=== PATIENT | male | born 1995 | race Two or more races ===

== ENCOUNTER → 2017-02-01 11:03 | Emergency (ER) | payer OTHER ==
[~2017-02-01 11:03] MED LIST: Acetaminophen TAB* 325 MG PO ONE; Ibuprofen TAB* 800 MG PO ONE
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
[2017-02-01 15:18] VITALS: BP 147/82
== END | disposition home or self-care (01) ==
LOC: ED 11:03
DX: S00.83XA Contusion of other part of head, initial encounter (principal); S01.512A Laceration without foreign body of oral cavity, initial encounter; S05.10XA Contusion of eyeball and orbital tissues, unspecified eye, initial encounter; Y04.2XXA Assault by strike against or bumped into by another person, initial encounter; Y92.149 Unspecified place in prison as the place of occurrence of the external cause
CPT/HCPCS: 70450; 70486; 99282; A9270-GY